=== PATIENT | female | born 1975 | race Caucasian/White ===

== ENCOUNTER 2016-07-15 16:42 | Emergency (ER) | payer SELFPAY ==
[~2016-07-15] VITALS: Ht 167.6 cm; Wt 99.8 kg
[~2016-07-15 16:42] MED LIST: IBUP600T26 PO; PRENATAL VITAMIN PO
--- NOTE | 2016-07-15 19:17 | REP ---
Complete abdominal sonography: History: Right-sided abdominal pain. Comparison right upper quadrant sonography is from 10/20/2006. Findings: Scanning through the right upper quadrant of the abdomen shows a normal sized thin-walled gallbladder without evidence of stone or polyp. Common bile duct is normal measuring 0.4 cm in greatest diameter. There is some increased echogenicity and decreased insonation in the liver parenchyma consistent with diffuse fatty infiltration of the liver. No focal liver lesion is seen. The pancreas is obscured by abdominal gas. The spleen is mildly enlarged with a 13.9 cm greatest transverse dimension. Overall dimensions of the spleen are 13.9 x 5.5 x 13.6 cm. No focal splenic lesion is seen. Renal cortical echogenicity pattern is normal and renal contours are smooth. The right kidney measures 10.8 x 6.2 x 5.9 cm. Left renal dimensions are 12.9 x 4.4 x 5.5 cm. A normal caliber aorta is seen at the level of the renal arteries. No ascites noted. Impression: Mild splenomegaly. Fatty infiltration of the liver. Otherwise negative complete abdominal sonography. Signed by Maurisio Blanco MD 07/15/2016 07:40 P
[2016-07-15] MEDS ORDERED: BENT20TA PO (19:47)
[2016-07-15] MEDS ORDERED: NAPR500T PO (19:47)
[2016-07-15 20:08] VITALS: BP 137/81
== END 2016-07-15 20:14 | disposition home or self-care (01) ==
LOC: M ED 19:06
DX: R10.11 Right upper quadrant pain (principal); R10.12 Left upper quadrant pain; E66.8 Other obesity; Z79.899 Other long term (current) drug therapy

== ENCOUNTER → 2017-10-29 | Outpatient (REF) | payer SELFPAY ==
[2017-11-01 14:10] LABS: HPV HYBRID CAPTURE II Negative (Negative)
== END ==
LOC: M LAB REF 09:02
DX: Z12.4 Encounter for screening for malignant neoplasm of cervix (principal)

== ENCOUNTER → 2018-01-28 | Outpatient (CLI) | payer SELFPAY ==
[2018-01-28 14:12] LABS: BASO % 0.1 % (0.0-1.0); EOS # 0.1 10^3/uL (0.0-0.50); EOS % 1.9 % (0.0-3.0); HEMATOCRIT 40.6 % (36.0-47.0); HEMOGLOBIN 13.5 g/dl (12.0-15.5); IMMATURE GRANULOCYTE % 0.1 % (0-3.0); LYMPH # 1.8 10^3/uL (1.5-4.5); LYMPH % 26.1 % (24.0-44.0); MEAN CORPUSCULAR HEMOGLOBIN 27.6 pg (27.0-33.0); MEAN CORPUSCULAR HGB CONC 33.3 g/dl (32.0-36.5); MEAN CORPUSCULAR VOLUME 82.9 fl (80.0-96.0); MONO # 0.5 10^3/uL (0.0-0.8); MONO % 7.7 % (0.0-5.0); NEUTROPHILS # 4.3 10^3/uL (1.8-7.7); NEUTROPHILS % 64.1 % (36.0-66.0); PLATELET COUNT, AUTOMATED 232 10^3/uL (150-450); RED CELL DISTRIBUTION WIDTH 13.3 % (11.5-14.5); WHITE BLOOD COUNT 6.8 10^3/uL (4.0-10.0)
[2018-01-28 14:33] LABS: D-DIMER QUANT 427.4 ng/ml (<500)
[2018-01-28 15:34] LABS: ALBUMIN 3.6 GM/DL (3.2-5.2); ALBUMIN/GLOBULIN RATIO 1.03 (1.00-1.93); ALKALINE PHOSPHATASE 58 U/L (45-117); ALT/SGPT 46 U/L (12-78); ANION GAP 8 MEQ/L (8-16); AST/SGOT 24 U/L (7-37); BILIRUBIN,TOTAL 0.5 MG/DL (0.2-1.0); BLOOD UREA NITROGEN 17 MG/DL (7-18); CALCIUM LEVEL 8.3 MG/DL (8.5-10.1); CARBON DIOXIDE LEVEL 24 MEQ/L (21-32); CHLORIDE LEVEL 107 MEQ/L (98-107); CHOLESTEROL LEVEL 192 MG/DL (<200); CHOLESTEROL RISK RATIO 4.173 (<5); CPK CREATINE PHOSPHOKINASE 169 U/L (26-192); FREE T4 1.11 NG/DL (0.76-1.46); GLOMERULAR FILTRATION RATE > 60.0 (>58); GLUCOSE, FASTING 83 MG/DL (70-100); HDL CHOLESTEROL 46 MG/DL (>40); LDL CHOLESTEROL 131 MG/DL (<100); MB/CK RELATIVE INDEX 0.83 (< OR =4); NON-HDL-C 146 MG/DL; POTASSIUM SERUM 4.3 MEQ/L (3.5-5.1); SODIUM LEVEL 139 MEQ/L (136-145); TOTAL PROTEIN 7.1 GM/DL (6.4-8.2); TRIGLYCERIDES LEVEL 77 MG/DL (<150); TROPONIN I < 0.02 NG/ML (< 0.10)
[2018-01-28 15:49] LABS: GOLD SPEC TUBE RECIEVED
== END ==
LOC: M WUC 12:44
DX: R07.1 Chest pain on breathing (principal)
CPT/HCPCS: 82550

== ENCOUNTER → 2020-07-05 | Outpatient (CLI) | payer OTHER ==
[~2020-07-05] MED LIST changes: +BENT20TA PO; +NAPR-837 PO
[2020-07-05 14:19] LABS: BASO % 0.3 % (0.0-1.0); EOS # 0.1 10^3/uL (0.0-0.5); EOS % 0.8 % (0.0-3.0); HEMATOCRIT 33.2 % (36.0-47.0); HEMOGLOBIN 9.9 g/dl (12.0-15.5); LYMPH # 0.8 10^3/uL (1.5-5.0); LYMPH % 9.4 % (24.0-44.0); MEAN CORPUSCULAR HEMOGLOBIN 22.2 pg (27.0-33.0); MEAN CORPUSCULAR HGB CONC 29.8 g/dl (32.0-36.5); MEAN CORPUSCULAR VOLUME 74.6 fl (80.0-96.0); MONO # 0.8 10^3/uL (0.0-0.8); MONO % 8.7 % (2.0-8.0); NEUTROPHILS # 7.2 10^3/uL (1.5-8.5); NEUTROPHILS % 80.4 % (36.0-66.0); PLATELET COUNT, AUTOMATED 293 10^3/uL (150-450); RED BLOOD COUNT 4.45 10^6/uL (4.00-5.40)
[2020-07-05 14:49] LABS: ALBUMIN 3.6 GM/DL (3.2-5.2); ALT/SGPT 68 U/L (12-78); BILIRUBIN,TOTAL 0.5 MG/DL (0.2-1.0); BLOOD UREA NITROGEN 13 MG/DL (7-18); CARBON DIOXIDE LEVEL 25 MEQ/L (21-32); CHLORIDE LEVEL 106 MEQ/L (98-107); CREATININE FOR GFR 0.73 MG/DL (0.55-1.30); GLOMERULAR FILTRATION RATE > 60.0 (>58); GLUCOSE, FASTING 105 MG/DL (70-100); LIPASE 314 U/L (73-393); POTASSIUM SERUM 4.4 MEQ/L (3.5-5.1); SODIUM LEVEL 136 MEQ/L (136-145)
== END ==
LOC: M LAB 13:45
PROVIDERS: ATTEND Physician Assistant
DX: R10.13 Epigastric pain (principal); N93.9 Abnormal uterine and vaginal bleeding, unspecified